=== PATIENT | female | born 1995 | race Caucasian/White ===

== ENCOUNTER 2020-10-10 16:04 | Emergency (ER) | payer OTHER, SELFPAY ==
[2020-10-10 16:18] VITALS: BP 130/85; PULSE 78; RESP 14; TEMP 36.4; O2SAT 99
--- NOTE | 2020-10-10 18:33 | ED.RECABL ---
HPI - Recheck/Abnormal Lab/Rx General Chief Complaint: Recheck/Abnormal Lab/Rx Stated Complaint: Needs Right Arm Looked at, FX Elbow Time Seen by Provider: 10/10/20 18:24 Source: patient Mode of arrival: Ambulatory Limitations: no limitations History of Present Illness HPI narrative: Patient is a 25-year-old female who earlier this week had a right elbow surgery performed at an outside facility. She states that she has run out of her pain medication and she is boarding a flight 2 days from now and needs a refill of her pain medication. Related Data Allergies Allergy/AdvReac Type Severity Reaction Status Date / Time No Known Drug Allergies Allergy Verified 10/10/20 16:21 Review of Systems Constitutional Constitutional: Reports system reviewed and no additional complaints, except as documented Cardiovascular Cardiovascular: Reports system reviewed and no additional complaints, except as documented Respiratory Respiratory: Reports system reviewed and no additional complaints, except as documented Gastrointestinal Gastrointestinal: Reports system reviewed and no additional complaints, except as documented Musculoskeletal Comments: Right arm pain Neurologic Neurologic: Reports system reviewed and no additional complaints, except as documented Patient History Medical History Healthy adult Social History Smoking Status: Current every day smoker Smoking Status: Current every day smoker alcohol intake frequency: 0-2 drinks per day Substance Use Type: marijuana Exam Initial Vital Signs Initial Vital Signs: Vital Signs Temperature 97.6 F 10/10/20 16:18 Pulse Rate 78 10/10/20 16:18 Respiratory Rate 14 10/10/20 16:18 Blood Pressure 130/85 10/10/20 16:18 Pulse Oximetry 99 10/10/20 16:18 HENDE Head: normal to inspection and normocephalic Resp Effort & Inspection: normal respiratory effort Skin General: no rashes or lesions noted Neuro General: patient alert and patient awake Extrem Other: Cast over right forearm Course Vital Signs Vital signs: Vital Signs - 8 hr 10/10/20 16:18 10/10/20 18:35 Temperature 97.6 F Pulse Rate 78 76 Respiratory Rate 14 17 Blood Pressure 130/85 127/76 Pulse Oximetry 99 99 MDM - Recheck/Abnormal Lab/Rx MDM Narrative Medical decision making narrative: Patient with cast over her right forearm. Informed patient that unfortunately we will be unable to refill her pain medication from the emergency department and that she needs to contact her operative provider in order to get a refill. Discharge Plan Departure Patient Disposition: Home Clinical Impression: Post-operative pain Activity Restrictions/Additional Instructions: Unfortunately we are unable to refill any of your pain medication. You will need to contact the surgeon who performed your operation to get any refills.
[2020-10-10 18:35] VITALS: BP 127/76; PULSE 76; RESP 17; O2SAT 99
== END 2020-10-10 18:36 | disposition home or self-care (01) ==
PROVIDERS: Emergency Provider Emergency Medicine
DX: G89.18 Other acute postprocedural pain (principal)
CPT/HCPCS: 99281